=== PATIENT | male | born 2000 | race Caucasian/White ===

== ENCOUNTER → 2022-06-25 | Day surgery (SDC) | payer OTHER ==
[~2022-06-25] VITALS: Ht 180.3 cm; Wt 86.2 kg
[~2022-06-25] MED LIST: BENTYL10 MG PO; CITRATE OF MAG296 ML PO; MIRALAX 238GM238 GM PO; VIBRAMYCIN100 MG PO
== END | disposition home or self-care (01) ==
LOC: FAS 10:09
DX: S70.352A Superficial foreign body, left thigh, initial encounter (principal); W45.8XXA Other foreign body or object entering through skin, initial encounter; W27.8XXA Contact with other nonpowered hand tool, initial encounter
CPT/HCPCS: 76000; J2001